=== PATIENT | male | born 1965 | race Caucasian/White ===

== ENCOUNTER → 2025-07-05 | Day surgery (SDC) | payer MEDICARE, MEDICAID ==
[~2025-07-05] VITALS: Ht 175.3 cm; Wt 87.1 kg
[~2025-07-05] MED LIST: ACETAMINOPHEN 1000MG/100ML 100 ML IV ONE; ACETAMINOPHEN WITH CODEINE 300/30MG TABLET PO NR; AMLO10TA80 PO; ATEN-42 PO; ATOR20TA65 PO; BICT1TAB PO; BUPIVACAINE HCL/PF 0.5% (5MG/ML) 10ML ONE; CEFAZOLIN SODIUM 1000MG/VIAL ONE; DEXAMETHASONE 4MG/ML 1ML VIAL ONE; EPHEDRINE SULFATE 50MG/ML VIAL ONE; FAMOTIDINE 20MG/2ML VIAL IV ONE; HYDRALAZINE 20MG/ML VIAL IV PRN; HYDROMORPHONE HCL/PF 1MG/ML INJ IV PRN; HYDROMORPHONE HCL/PF 1MG/ML INJ ONE; KETOROLAC 30MG/ML VIAL ONE; LABETALOL 5MG/ML 4ML INJ IV PRN; LACTATED RINGERS 1,000 ML IV SCH; LIDOCAINE HCL 1% 20ML VIAL ONE; LIDOCAINE HCL/PF 1% 10 MG/ML 5ML VIAL ONE; LISI-649 PO; MIDAZOLAM HCL 2 MG/2 ML VIAL ONE; MULT-622 PO; ONDANSETRON HCL 4MG/2ML INJ IV PRN; ONDANSETRON HCL 4MG/2ML INJ ONE; PHENYLEPHRINE HCL 10MG/ML 1ML IV ONE; PROPOFOL 200MG/20ML VIAL IV ONE; ROCURONIUM BROMIDE 10MG/ML VIAL 5ML IV ONE; SKIN ADHESIVE 0.7 GM EA TOP ONE
== END | disposition home or self-care (01) ==
LOC: OR 06:33
PROVIDERS: ATTEND Surgery
DX: K40.90 Unilateral inguinal hernia, without obstruction or gangrene, not specified as recurrent (principal); I10 Essential (primary) hypertension; Z79.82 Long term (current) use of aspirin; Z79.899 Other long term (current) drug therapy; Z98.890 Other specified postprocedural states
CPT/HCPCS: 49650; C1781; J0131; J0665; J0690; J1100; J3490 ×2; J1308; J1885; J2003; J2250; J2405; J2371; J2704; J1171; C1727